=== PATIENT | female | born 1975 | race Caucasian/White ===

== ENCOUNTER 2019-04-27 11:22 | Observation (INO) ==
[2019-04-27] MEDS ORDERED: Nitroglycerin 0.4 MG TAB.SUBL SL PRN ×2 (11:28→15:56)
[2019-04-27] MEDS ORDERED: 0.9 % Sodium Chloride 1,000 ML IVC SCH ×2 (11:30→15:56)
[2019-04-27 11:52] LABS: Basophils # 0.1 K/mcL (0.0-0.2); Basophils % 0.6 %; Eosinophils # 0.3 K/mcL (0.0-0.6); Eosinophils % 3.1 %; Hematocrit 43.9 % (35.3-44.9); Hemoglobin 15.2 g/dL (11.5-15.4); Immature Granulocytes % 0.4 % (0-4); Lymphocytes # 2.5 K/mcL (0.6-4.6); Lymphocytes % 23.7 %; Mean Corpuscular HGB Conc 34.6 g/dL (31.6-35.5); Mean Corpuscular Volume 86.8 fL (83.0-100.0); Mean Platelet Volume 10.7 fL (9.4-12.4); Monocytes # 0.5 K/mcL (0.0-1.3); Monocytes % 5.1 %; Platelet Count 254 K/mcL (140-400); Red Blood Count 5.06 M/mcL (3.82-4.97); Red Cell Distribution Width 12.6 % (11.5-14.5); Segmented Neutrophils % 67.1 %; White Blood Count 10.4 K/mcL (4.3-11.1)
--- NOTE | 2019-04-27 11:59 | Emergency Department Note ---
Disposition Clinical Impression: Chest pain Disposition: Admitted As Inpatient Condition: Good Time of Disposition: 15:30 Chest Pain HPI - General Chief Complaint: ED Chest Pain Stated Complaint: Sent by . C/o elevated B/P Time Seen by Provider: 04/27/19 11:25 Source: patient Mode of arrival: ambulatory Limitations: no limitations Vital Signs Reviewed: Yes Nursing Notes Reviewed: Yes - History of Present Illness HPI Narrative: Patient woke up last night with chest discomfort started about 5 AM. There was an achiness so she went to the urgent care when it persisted. She was sent here by the time she arrived here her pain and achiness Pt complaint: chest pain Duration: intermittent Onset: during rest Pain Location: substernal, left chest Severity: mild Quality: tightness Pain Radiation: none Improves with: nothing Worsens with: nothing Treatments prior to arrival chest pain: aspirin - Related Data Home Medications Medication Instructions Recorded Confirmed Basaglar Kwikpen U-100 60 units SQ QPM 02/07/18 NovoLOG 15 units SQ 02/07/18 Simvastatin 40 mg PO QPM 02/07/18 Lisinopril [Zestril] 20 mg PO DAILY 04/27/19 04/27/19 Allergies Allergy/AdvReac Type Severity Reaction Status Date / Time Benzonatate AdvReac Rash Unverified 02/07/18 16:42 [From Sly Vivas] All systems ED: reviewed and negative except as stated. Review of Systems: As Per HPI Constitutional: Denies: fever, chills, weakness, weight change Eyes: Denies: eye pain, eye discharge, vision change ENT ED: Denies: ear pain, throat pain, dental pain, hearing loss, epistaxis, congestion, dysphagia Cardiovascular: Reports: as per HPI, chest pain. Denies: palpitations, dyspnea on exertion, edema, syncope Respiratory: Denies: cough, dyspnea, wheezes, hemoptysis, stridor Gastrointestinal: Reports: as per HPI, nausea. Denies: abdominal pain, vomiting, diarrhea, constipation, hematemesis, melena, hematochezia Genitourinary: Denies: dysuria, frequency, hematuria, discharge Musculoskeletal: Denies: back pain, neck pain, arthralgia, myalgia Integumentary: Denies: rash, abrasion, lesions Neurological: Denies: headache, weakness, numbness, paresthesias, confusion, abnormal gait, vertigo Psychiatric: Denies: anxiety, depression, suicidal thoughts, homicidal thoughts, auditory hallucinations, visual hallucinations Chest Pain PMH - Past Medical History Medical history: Reports: non-contributory Psychiatric history: Reports: no psych history - Social History Smoking Status: Never smoker Alcohol use: Reports: none Drug use: Reports: none Physical Exam - General Limitations: no limitations General appearance: alert, in no apparent distress - Head Head exam: atraumatic, normocephalic, normal inspection - Eye Eye exam: Present: normal appearance, PERRL, EOMI - ENT ENT exam: normal exam, normal oropharynx, mucous membranes moist - Neck Neck exam: Present: normal inspection, full ROM, trachea midline - Chest Chest inspection: Present: normal inspection, symmetric chest wall rise - Respiratory Respiratory exam: Present: normal lung sounds bilaterally - Cardiovascular Cardiovascular exam: Present: regular rate, normal rhythm, normal heart sounds - Abdominal Exam Abdominal exam: Present: soft, Non-Tender. Absent: tenderness, distention, guarding, rebound, rigidity - Extremities Exam Extremities exam: Present: normal inspection, full ROM. Absent: tenderness, pedal edema - Back Exam Back exam: Present: normal inspection, full ROM. Absent: tenderness - Neurological Exam Neurological exam: Present: alert, oriented X3 - Psychiatric Psychiatric exam: Present: normal affect, normal mood - Skin Skin exam: Present: warm, dry, intact, normal color Course Vital Signs Temperature 97.3 F L 04/27/19 11:26 Pulse Rate 83 04/27/19 11:26 Respiratory Rate 20 04/27/19 11:26 Blood Pressure 153/100 04/27/19 11:26 O2 Sat by Pulse Oximetry 96 04/27/19 11:26 Temperature 97.3 F L 04/27/19 11:26 Pulse Rate 83 04/27/19 15:33 Respiratory Rate 18 04/27/19 15:33 Blood Pressure 132/90 04/27/19 15:33 O2 Sat by Pulse Oximetry 95 04/27/19 15:33 Oxygen Delivery Oxygen Delivery Room Air Chest Pain - MDM Narrative Medical decision making narrative: I reviewed the patient's medication list Case was discussed with Dr. Silva who is graciously accepted admission of the patient - Lab Data Lab results reviewed: Yes I reviewed the patient's lab results. Result diagrams: 04/27/19 11:46 04/27/19 11:46 Lab Results 04/27/19 04/27/19 04/27/19 Range/Units 11:46 11:46 12:31 WBC 10.4 (4.3-11.1) K/mcL RBC 5.06 H (3.82-4.97) M/mcL Hgb 15.2 (11.5-15.4) g/dL Hct 43.9 (35.3-44.9) % MCV 86.8 (83.0-100.0) fL MCH 30.0 (28.0-33.3) pg MCHC 34.6 (31.6-35.5) g/dL RDW 12.6 (11.5-14.5) % Plt Count 254 (140-400) K/mcL MPV 10.7 (9.4-12.4) fL Immature Gran % 0.4 (0-4) % Seg Neutrophils % 67.1 % Lymphocytes % 23.7 % Monocytes % 5.1 % Eosinophils % 3.1 % Basophils % 0.6 % Neutrophils # 7.0 (1.6-8.9) K/mcL Lymphocytes # 2.5 (0.6-4.6) K/mcL Monocytes # 0.5 (0.0-1.3) K/mcL Eosinophils # 0.3 (0.0-0.6) K/mcL Basophils # 0.1 (0.0-0.2) K/mcL Sodium 135 L (136-145) mEq/L Potassium 3.9 (3.5-5.1) mEq/L Chloride 100 (98-107) mEq/L Carbon Dioxide 30 H (23-29) mEq/L BUN 10 (6-20) mg/dL Creatinine 0.73 (0.60-1.20) mg/dL Est GFR ( Amer) > 60 (> 60) Est GFR (Non-Af Amer) > 60 (> 60) BUN/Creatinine Ratio 14 (6-26) Glucose 307 H (70-105) mg/dL Calculated Osmolality 291 (280-300) Calcium 8.5 L (8.6-10.3) mg/dL Total Bilirubin 0.2 L (0.3-1.0) mg/dL AST 11 L (13-39) Units/L ALT 11 (7-52) Units/L Alkaline Phosphatase 119 H (34-104) Units/L Troponin I < 0.03 < 0.03 (< 0.04) ng/mL Serum Total Protein 6.4 (6.4-8.9) g/dL Albumin 3.7 (3.5-5.7) g/dL Globulin 2.7 (2.4-3.5) g/dL Albumin/Globulin Ratio 1.4 (1.1-2.2) - Radiology Data Radiology results reviewed: Yes I reviewed the patient's radiology results. - EKG Data EKG attestation: Yes I reviewed and interpreted this EKG. EKG results narrative: EKG shows a sinus rhythm rate of 75 bpm. Intervals 157 ms QRS duration 80 ms QT/QTC intervals 9 ms respectively R axis of -4 degrees no acute ischemic changes are appreciated.
[2019-04-27 12:10] LABS: Alanine Aminotransferase 11 Units/L (7-52); Albumin 3.7 g/dL (3.5-5.7); Albumin/Globulin Ratio 1.4 (1.1-2.2); Alkaline Phosphatase 119 Units/L (34-104); Aspartate Amino Transferase 11 Units/L (13-39); BUN/Creatinine Ratio 14 (6-26); Bilirubin,Total 0.2 mg/dL (0.3-1.0); Blood Urea Nitrogen 10 mg/dL (6-20); Calcium 8.5 mg/dL (8.6-10.3); Carbon Dioxide 30 mEq/L (23-29); Chloride 100 mEq/L (98-107); Globulin 2.7 g/dL (2.4-3.5); Glucose 307 mg/dL (70-105); Osmolality,Calculated 291 (280-300); Potassium 3.9 mEq/L (3.5-5.1); Sodium 135 mEq/L (136-145); Total Protein 6.4 g/dL (6.4-8.9); Troponin I < 0.03 ng/mL (< 0.04); eGFR For African Americans > 60 (> 60); eGFR For Non-African Americans > 60 (> 60)
[2019-04-27] MEDS ORDERED: Insulin Regular, Human 100 UNIT/ML SQ ONE (13:23)
[2019-04-27] MEDS ORDERED: Naloxone 0.4 MG/ML INJ IVP PRN (15:56)
[2019-04-27] MEDS ORDERED: D5% in Water 1,000 ML IVC PRN (16:01)
[2019-04-27] MEDS ORDERED: *HR* Dextrose 50 % in Water (Vial) 50 ML VIAL IVP PRN (16:01)
[2019-04-27] MEDS ORDERED: Dextrose Gel 15 GM/37.5 ML TUBE PO PRN ×2 (16:01)
[2019-04-27] MEDS: Insulin LISPRO 300 UNITS/3 ML VIAL SQ SCH ×2 (18:20→18:50)
--- NOTE | 2019-04-27 19:50 | Internal Med History&Physical ---
Date of Encounter: 04/27/19 Time of Encounter: 19:20 Assessment and Plan (1) Chest pain Current visit: Yes Status: Acute Doubt myocardial ischemia from history and physical. Repeat cardiac enzymes were ordered in emergency room. Qualifiers: Chest pain type: unspecified Qualified Code(s): R07.9 - Chest pain, unspecified (2) Hypertension Current visit: Yes Status: Chronic Restart lisinopril 20 mg daily. Qualifiers: Hypertension type: essential hypertension Qualified Code(s): I10 - Essential (primary) hypertension (3) DM type 2 (diabetes mellitus, type 2) Current visit: Yes Status: Chronic Hemoglobin A1c will be checked in a.m. She will be started on metformin and Amaryl. Accu-Cheks with SSI will be done. 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 Qualifiers: Hyperlipidemia type: unspecified Qualified Code(s): E78.5 - Hyperlipidemia, unspecified Internal Medicine - H&P: HPI Chief complaint: Nausea, chest discomfort Admitted From: Emergency Dept Plans for Post Hospital Care: Home History of present illness: Ms. Norton is a 44 year old female who came to emergency room stating she had onset of nausea and "dull" discomfort in her chest approximately 1830 the i ng of April 26 while at leisure. She did not take Rx and symptoms did not worsen. When she awakened this morning she had ongoing nausea and no significant worsening of the dullness. She did not feel well at work and blood pressure check there showed 170/112. She was sent home but then went to a local urgent care and was directed to come to emergency room. She was evaluated in ER and admitted to [facility] floor for ongoing care needs. She states she feels essentially back to normal now with very minimal nausea and no chest discomfort. She denies previous similar episodes. She denies headache dyspnea vomiting or diarrhea. She reports no family members or other contacts have similar symptoms. Cardiovascular history is significant for hypertension but she denies TN heart failure angina DVT or pulmonary embolus. She states she has not been able to afford her medications or see her PCP for several months due to lapse in insurance coverage. Past Med Surg Social Fam HX - Past Medical History Medical history: diabetes, hyperlipidemia, hypertension, kidney stones Additional medical history: kidney stone. tobacco abuse Psychiatric history: no psych history - Past Surgical History Additional surgical history: oral. ureteral stents. lithotripsy - Social History Smoking Status: Former smoker Smokeless Tobacco Status: No Alcohol use: rarely Drug use: none - Family History Mother Living Status: Father Living Status: Internal Medicine - H&P: Meds Basaglar Kwikpen U-100 60 units SQ QPM 02/07/18 [History] NovoLOG 15 units SQ 02/07/18 [History] Simvastatin 40 mg PO QPM 02/07/18 [History] Lisinopril [Zestril] 20 mg PO DAILY 04/27/19 [History] Allergy/AdvReac Type Severity Reaction Status Date / Time Benzonatate AdvReac Rash Verified 04/27/19 19:13 [From Sly Vivas] All Systems PM: A 10-system review of systems was performed and is negative for pertinent findings except as documented above in the HPI. Review of systems: Gen.: She states her weight has been stable for several months Cardiovascular: As per history of present illness Respiratory: She has smoked since age 16 a total of approximate 20 years up to one and a half packs per day. She denies chronic lung disease and does not use home oxygen. She has not been tested for sleep apnea. GI: She denies disorders of her liver gallbladder or exocrine pancreas : She had a kidney stone removed in 2016. She denies other kidney or bladder disorders. Neurologic: She denies large distribution strokes or seizures. Endocrine: She was diagnosed with DM 2 approximately 2015. She reports blood sugars at home are consistently elevated and occasionally up to 500 MG/DL. She has history of hyperlipidemia but denies thyroid disease. Hematology/oncology: She denies blood disorders cancers or anemia Psychiatric: She was diagnosed with anxiety approximately 2015. She states she self tapered off Celexa 2 months ago without significant recurrent symptoms. [place] skeletal: She denies arthritis gout or other bone joint or muscle disorders. - Constitutional Vitals: Temp Pulse Resp BP Pulse Ox 97.3 F L 83 18 132/90 95 04/27/19 11:26 04/27/19 15:33 04/27/19 15:33 04/27/19 15:33 04/27/19 15:33 Exam: Gen.: She is a well-developed well-nourished female sitting in bed who appears in no acute distress HEENT: Head is atraumatic and normal cephalic. Eyes: EOMI. There is no scleral icterus. Mouth: Mucosa is moist. Neck: Supple and nontender. There is no thyromegaly or adenopathy noted. Heart: Regular without murmurs gallops or ectopics Lungs: No wheezes or crackles are heard. Chest: She has nontender chest wall to palpation. Abdomen: Soft and nontender. No masses or guarding are noted. Extremities: There is no cyanosis edema or clubbing noted. Dorsalis pedis and posterior tibial pulses are 1-2 over 2 bilaterally. Neurologic: Mental status: She is talkative and a good historian. Cranial nerves: Smile is symmetric. Forehead wrinkles bilaterally. Tongue protrudes midline. EOMI. Motor: There is no pronator drift. Cerebellar: Fair to nose is intact bilaterally. Skin: Warm and dry Internal Med - H&P Results - Labs CBC & Chem 7: 04/27/19 11:46 04/27/19 11:46 Labs: Short CBC 04/27/19 Range/Units 11:46 WBC 10.4 (4.3-11.1) K/mcL Hgb 15.2 (11.5-15.4) g/dL Hct 43.9 (35.3-44.9) % Plt Count 254 (140-400) K/mcL Neutrophils # 7.0 (1.6-8.9) K/mcL BMP 04/27/19 11:46 Sodium 135 L Potassium 3.9 Chloride 100 Carbon Dioxide 30 H BUN 10 Creatinine 0.73 Glucose 307 H Calcium 8.5 L Cardiac Enzymes 04/27/19 04/27/19 04/27/19 Range/Units 11:46 12:31 18:41 Troponin I < 0.03 < 0.03 < 0.03 (< 0.04) ng/mL Liver Function 04/27/19 Range/Units 11:46 Total Bilirubin 0.2 L (0.3-1.0) mg/dL AST 11 L (13-39) Units/L ALT 11 (7-52) Units/L Alkaline Phosphatase 119 H (34-104) Units/L Albumin 3.7 (3.5-5.7) g/dL - Impressions ITS Impressions Chest X-Ray 04/27/19 12:04 IMPRESSION: No acute cardiopulmonary process. D/ / 04/27/2019 12:33:25 Luis Fernando Braxton MD / earnold Interpreting Provider: Luis Fernando Braxton MD
[2019-04-27] MEDS: Lisinopril 20 MG TABLET PO SCH (20:44)
[2019-04-27] MEDS ORDERED: Insulin LISPRO 300 UNITS/3 ML VIAL SQ SCH (21:00)
--- NOTE | 2019-04-27 21:45 | Electrocardiograph Report ---
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
[2019-04-27] MEDS ORDERED: Acetaminophen 325 MG TABLET PO PRN (23:53)
[2019-04-28 01:10] LABS: Basophils # 0.1 K/mcL (0.0-0.2); Basophils % 0.8 %; Eosinophils # 0.5 K/mcL (0.0-0.6); Eosinophils % 3.9 %; Hematocrit 40.1 % (35.3-44.9); Hemoglobin 13.8 g/dL (11.5-15.4); Immature Granulocytes % 0.3 % (0-4); Lymphocytes # 3.6 K/mcL (0.6-4.6); Lymphocytes % 30.7 %; Mean Corpuscular HGB Conc 34.4 g/dL (31.6-35.5); Mean Corpuscular Hemoglobin 30.2 pg (28.0-33.3); Mean Corpuscular Volume 87.7 fL (83.0-100.0); Mean Platelet Volume 10.7 fL (9.4-12.4); Monocytes # 0.8 K/mcL (0.0-1.3); Monocytes % 6.4 %; Neutrophils # 6.8 K/mcL (1.6-8.9); Platelet Count 237 K/mcL (140-400); Red Blood Count 4.57 M/mcL (3.82-4.97); Red Cell Distribution Width 12.5 % (11.5-14.5); Segmented Neutrophils % 57.9 %; White Blood Count 11.7 K/mcL (4.3-11.1)
[2019-04-28 01:34] LABS: BUN/Creatinine Ratio 15 (6-26); Blood Urea Nitrogen 10 mg/dL (6-20); Calcium 8.2 mg/dL (8.6-10.3); Carbon Dioxide 28 mEq/L (23-29); Chloride 103 mEq/L (98-107); Chol/HDL Ratio 5.4 (0-4.9); Glucose 170 mg/dL (70-105); Osmolality,Calculated 283 (280-300); Potassium 3.8 mEq/L (3.5-5.1); Sodium 135 mEq/L (136-145); eGFR For African Americans > 60 (> 60); eGFR For Non-African Americans > 60 (> 60)
[2019-04-28 01:46] LABS: Thyroid Stimulating Hormone 3.101 mcIU/mL (0.340-5.600)
[2019-04-28 06:45] VITALS: BP 124/80
[2019-04-28] MEDS ORDERED: *HR* Metformin 500 MG TABLET PO SCH (08:00)
[2019-04-28] MEDS ORDERED: *HR* Glimepiride 2 MG TABLET PO SCH (08:00)
[2019-04-28] MEDS: Insulin LISPRO 300 UNITS/3 ML VIAL SQ SCH (08:29)
[2019-04-28] MEDS: Lisinopril 20 MG TABLET PO SCH (08:29)
--- NOTE | 2019-04-28 10:18 | Discharge Summary ---
Date of Encounter: 04/28/19 Time of Encounter: 10:09 - Discharge Diagnosis (1) Chest pain Priority: Primary Status: Acute Qualifiers: Chest pain type: unspecified Qualified Code(s): R07.9 - Chest pain, unspecified (2) Hypertension Priority: Secondary Status: Chronic Qualifiers: Hypertension type: essential hypertension Qualified Code(s): I10 - Essential (primary) hypertension (3) DM type 2 (diabetes mellitus, type 2) Priority: Secondary Status: Chronic Qualifiers: Diabetes mellitus holistic health practitioner insulin use: with holistic health practitioner use Diabetes mellitus complication status: without complication Qualified Code(s): E11.9 - Type 2 diabetes mellitus without complications; 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 Norton is a 44 year old female who came to emergency room stating she had onset of nausea and "dull" discomfort in her chest approximately 1830 the evening of April 26 while at leisure. She did not take Rx and symptoms did not worsen. When she awakened this morning she had ongoing nausea and no significant worsening of the dullness. She did not feel well at work and blood pressure check there showed 170/112. She was sent home but then went to a local urgent care and was directed to come to emergency room. She was evaluated in ER and admitted to [facility] floor for ongoing care needs. I saw her on April 27 and performed a history and physical. Repeat cardiac enzymes showed no evidence of myocardial damage. I did not think the chest pain was likely myocardial ischemic origin. The etiology of pain was not determined with certainty. Lisinopril 20 mg daily was restarted and blood pressure returned to satisfactory range. Metformin 500 mg b.i.d and Amaryl 1 mg daily were started. She will continue this regimen at home. She will remain off insulin at this time. Hemoglobin A1c result is pending at time of discharge. Lipid profile showed cholesterol 136, triglycerides 191, HDL 29, LDL 89, and total/HDL ratio 5.4. She will be given a prescription for simvastatin. TSH returned WNL at 3.101. On April 28 she felt back to her baseline and wished to be discharged home. I encouraged her to become a nonsmoker. She will follow with her PCP Libia Kelley CNP within 1 week. - Time Spent with Patient Total time spent providing and/or coordinating discharge services: - Discharge Medications Prescriptions: New Glimepiride [Amaryl] 1 mg PO 0800 #15 tablet metFORMIN [Glucophage] 500 mg PO BIDWM #60 tablet Continued Simvastatin 40 mg PO QPM #30 Lisinopril [Zestril] 20 mg PO DAILY #30 tab Discontinued NovoLOG 15 units SQ Basaglar Kwikpen U-100 60 units SQ QPM Home Medications: Glimepiride [Amaryl] 1 mg PO 0800 #15 tablet 04/28/19 [Rx] Lisinopril [Zestril] 20 mg PO DAILY #30 tab 04/28/19 [Rx] Simvastatin 40 mg PO QPM #30 04/28/19 [Rx] metFORMIN [Glucophage] 500 mg PO BIDWM #60 tablet 04/28/19 [Rx] Allergies/Adverse Reactions: Allergy/AdvReac Type Severity Reaction Status Date / Time Benzonatate AdvReac Rash Verified 04/27/19 19:13 [From Sly Vivas] Date of admission: 04/27/19 15:32 Primary care physician: Libia Kelley - Constitutional Vitals: Temp Pulse Resp BP Pulse Ox 98.1 F 64 18 124/80 97 04/28/19 06:44 04/28/19 06:44 04/28/19 06:44 04/28/19 06:44 04/28/19 06:44 - Patient Status Disposition: Home, Self-Care Condition: Good - Discharge Instructions Follow Up With: Libia Kelley [Primary Care Provider] - - Diet and Activity Activity: resume usual activities as tolerated Diet: diabetic diet
[2019-04-28 12:53] LABS: Estimated Average Glucose 349 mg/dl
== END 2019-04-28 12:00 | disposition home or self-care (01) ==
LOC: EMEROOPIK 11:22 → INPPIK 11:22
PROVIDERS: ADMIT Internal Medicine; ATTEND Internal Medicine